=== PATIENT | female | born 1960 | race African-American/Black ===

== ENCOUNTER 2017-01-07 11:48 | Inpatient (IN) | payer OTHER ==
[~2017-01-07] VITALS: Ht 154.9 cm; Wt 70.3 kg
--- NOTE | ~2017-01-07 | EKG ---
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 : 1960 Requested By: Kenya Marques Order Number: [id number] MD: Tyler Velazquez Measurements Intervals [place] Rate: 51 P: 15 SC: 148 QRS: 26 QRSD: 89 T: 42 QT: 484 QTc: 446 Interpretive Statements Sinus rhythm Probable left atrial enlargement Probable left ventricular hypertrophy Compared to ECG 03/26/2014 09:38:18 T-wave abnormality no longer present Prolonged QT interval no longer present Electronically Signed On 01-07-2017 15:59:17 CDT by Tyler Velazquez [email or web address] <ELECTRONICALLY SIGNED> By: Tyler Velazquez MD 01/07/17 1559 1204 1204 Tyler Velazquez MD /EPI
--- NOTE | ~2017-01-07 | D ---
[facility] [place] [address] DISCHARGE SUMMARY Name: CESAR FLANNERY Room #: 453-P ADM IN M.R.#: [id number] Admission: 01/07/17 Attend Phys: Roxie Wynn MD Discharge: Date of : 56 Report #: [id number] THIS REPORT FOR: //name// CC: Yvrose Wynn DATE OF SERVICE: 01/08/2017 HISTORY OF PRESENT ILLNESS: The patient is a 57-year-old female with history of hypertension and noncompliance, who was admitted for hypertensive urgency. She was sent here from primary care doctor's office. Her blood pressure was 220/114. Please refer to the admission H and P for details. HOSPITALIZATION COURSE: The patient was hospitalized at [facility]. There was no evidence of end organ damage. The patient had headache, so CT scan of the brain was taken, which was negative. The patient does have history of hemorrhagic stroke in the past. After the patient's medications were resumed, blood pressure normalized. Cardene drip was discontinued a few hours after admission. The patient's condition remained stable. Her headache, resolved. She is currently completely asymptomatic and she feels well. The patient's condition is acceptable, as documented in the patient's chart. She will be discharged home with close outpatient followup. DISCHARGE DIAGNOSES: 1. Hypertensive urgency, resolved. 2. Noncompliance with medications. 3. Hypertension. 4. Tobacco abuse. 5. History of hemorrhagic stroke with mild left-sided weakness. 6. Depression. 7. Coronary artery disease, status post angioplasty in 2003, no stent. 8. Depression. DISCHARGE MEDICATIONS: Please refer to the medication reconciliation list. FOLLOWUP PLAN: Follow up with the primary care physician in 1-2 weeks. By: 1153 1224 Roxie Wynn MD /nt
[~2017-01-07 11:48] MED LIST: CARVEDILOL12.5 MG PO; IMDUR 30 MG TAB30 M1 PO; LISINOPRIL10 MG PO; NITROGLYCERIN0.4 MG SUBLING; NOHOMEMEDICATIONS; PRAVACHOL40 MG PO
[2017-01-07 11:49] VITALS: BP 230/130
[2017-01-07] MEDS ORDERED: SERTRALINE HCL100 MG PO (12:08)
[2017-01-07] MEDS ORDERED: LISINOPRIL20 MG PO (12:08)
[2017-01-07] MEDS ORDERED: ZOLOFT50 MG PO (12:08)
[2017-01-07 12:18] LABS: ABSOLUTE NEUTROPHILS 3.2 thou/uL (1.4-8.2); BASOPHILS 1.3 % (0.0-2.0); EOSINOPHILS 5.4 % (0.0-3.0); HEMATOCRIT 40.2 % (37.0-47.0); HEMOGLOBIN 12.9 gm/dL (12.0-15.0); LYMPHOCYTES 29.8 % (24.0-44.0); MCH 25.6 pg (26.0-34.0); MCHC 32.2 g/dL (28.0-37.0); MCV 79.4 fL (80.0-100.0); MONOCYTES 7.2 % (1.0-8.0); PLATELET COUNT 266 thou/uL (150-400); POLYS 56.3 % (36.0-66.0); RBC 5.06 mil/uL (4.20-5.00); RDW 14.8 % (10.5-14.5); WBC 5.7 thou/uL (4.0-11.0)
[2017-01-07 12:25] LABS: MANUAL DIFF NO
[2017-01-07 12:36] LABS: ANION GAP 8 mmol/L (7-16); BUN 10 mg/dL (7-18); CALCIUM 9.2 mg/dL (8.5-10.1); CHLORIDE 109 mmol/L (98-107); CO2 28 mmol/L (21-32); CREATININE 1.1 mg/dL (0.6-1.0); GLUCOSE 88 mg/dL (74-106); POTASSIUM 3.4 mmol/L (3.5-5.1); SODIUM 145 mmol/L (136-145)
[2017-01-07 12:41] LABS: TROPONIN-I < 0.04 ng/mL (<0.04-0.07)
[2017-01-07 15:02] VITALS: BP 139/76
[2017-01-07 16:45] VITALS: BP 163/90
[2017-01-07 19:26] VITALS: BP 149/103
[2017-01-07 20:55] VITALS: BP 132/84
[2017-01-07 23:40] VITALS: BP 129/81
[2017-01-08 03:58] VITALS: BP 146/97
[2017-01-08 05:58] LABS: HEMATOCRIT 41.6 % (37.0-47.0); HEMOGLOBIN 13.5 gm/dL (12.0-15.0); MCH 25.6 pg (26.0-34.0); MCHC 32.4 g/dL (28.0-37.0); MCV 79.1 fL (80.0-100.0); RBC 5.26 mil/uL (4.20-5.00); WBC 7.5 thou/uL (4.0-11.0)
[2017-01-08 06:13] LABS: ALBUMIN 3.3 g/dL (3.4-5.0); CALCIUM 9.3 mg/dL (8.5-10.1); POTASSIUM 3.4 mmol/L (3.5-5.1); TOTAL BILIRUBIN 0.3 mg/dL (<0.1-1.0)
[2017-01-08 07:53] VITALS: BP 170/99
[2017-01-08 10:06] VITALS: BP 134/92
[2017-01-08 11:31] VITALS: BP 125/79
[2017-01-08 13:08] VITALS: BP 125/79
== END 2017-01-08 13:50 | disposition home or self-care (01) | DRG 305 ==
LOC: ER 11:48 → 4W 13:44 → EROBS 13:44 → 4W 15:03
PROVIDERS: Emergency Medicine; Nurse Practitioner
DX: I16.1 Hypertensive emergency (principal); I69.954 Hemiplegia and hemiparesis following unspecified cerebrovascular disease affecting left non-dominant side; I10 Essential (primary) hypertension; E78.5 Hyperlipidemia, unspecified; E87.6 Hypokalemia; I16.0 Hypertensive urgency; N19 Unspecified kidney failure; F32.9 Major depressive disorder, single episode, unspecified; I25.10 Atherosclerotic heart disease of native coronary artery without angina pectoris; F17.210 Nicotine dependence, cigarettes, uncomplicated; Z98.62 Peripheral vascular angioplasty status; Z91.14 Patient's other noncompliance with medication regimen; I25.2 Old myocardial infarction; Z79.899 Other long term (current) drug therapy; Z82.49 Family history of ischemic heart disease and other diseases of the circulatory system; Z83.2 Family history of diseases of the blood and blood-forming organs and certain disorders involving the immune mechanism; Z83.3 Family history of diabetes mellitus; Z82.3 Family history of stroke
CPT/HCPCS: 10045

== ENCOUNTER 2018-01-24 07:54 | Observation (INO) | payer OTHER ==
[~2018-01-24] VITALS: Ht 154.9 cm; Wt 69.9 kg
--- NOTE | ~2018-01-24 | D ---
[facility] [place] [address] DISCHARGE SUMMARY Name: PRUDENCIOCESAR CRAMER Room #: 212-P [facility] Leoncio Garcia#: [id number] Admission: 01/24/18 Attend Phys: Karlos Harris MD Discharge: 01/25/18 Date of : 56 Report #: [id number] THIS REPORT FOR: //name// CC: Karlos Lara DATE OF SERVICE: 01/25/2018 FINAL DIAGNOSES: 1. Coronary artery disease, status post angioplasty. 2. Prior history of CAD with PCI. 3. Cerebrovascular accident with left leg weakness. 4. Hypertension. 5. Hypercholesterolemia. 6. Chronic tobacco use. HOSPITAL COURSE: Please see the original H and P for full details. The patient presented with unstable angina. Please see the cardiac cath report for full details. She was found to have a severe occlusion in the second obtuse marginal artery, undergoing placement of a drug-eluting stent. The previously placed stents in the RCA were patent with [id number] restenosis. During the angioplasty procedure, she had evidence for coronary vasospasm in the LAD, reverse with intracoronary nitroglycerin. She has remained stable overnight, denies any chest pains. Incidentally, an ECG performed this morning while she was sleeping revealed ST elevation in the precordial leads. Clinically, she was asymptomatic. She was given a nitroglycerin and a repeat EKG revealed resolution of the ST changes. In summary, the patient has evidence for coronary vasospasm. The Coreg was discontinued and she was started on Norvasc. She will continue with Imdur. I discussed with her the importance of complete smoking cessation, as this may be a trigger for the spasm. In addition, I discussed with her at length regarding the importance of compliance with medications, especially dual antiplatelet therapy. She will continue with aspirin, Pravachol and Imdur 90 mg daily. She will also continue with Maxzide once a day. New prescriptions include Norvasc 10 mg daily and Plavix 75 mg daily. <ELECTRONICALLY SIGNED> By: Karlos Harris MD 01/26/18 0819 0856 1154 Karlos Harris MD /nt
--- NOTE | ~2018-01-24 | CATHLAB ---
[facility] [address] [place] [address] INVASIVE PROCEDURE REPORT Name: CESAR FLANNERY Room #: 212-P [facility] IN ..#: [id number] Admission: 01/24/18 Attend Phys: Karlos Harris MD Discharge: Date of : 56 Date of Service: 01/24/18 1504 Report #: [id number] THIS REPORT FOR: //name// APPROVED REPORT Study performed: 01/24/2018 09:40:23 Patient Details Patient Status: Out-Patient Room #: The patient is a 58 year-old female Event Personnel Karlos Harris Car Oiler, Katarzyna RodriguezR, HOT DIP TINNING SUPERVISOR Monitor, Elda Alcala Knisely, Ceola RN RN, Hanh Damon RN squadron worker Performed Art Access - R femoral artery* Left Heart Cath w/or w/o Coronaries [id number] [facility] Place w/wo Plasty Single [place] [id number] Hemostasis w/ Mynx Indication Dyspnea, Unstable angina , Chest pain Risk Factors Hypercholesterolemia, Coronary Artery DiseaseHypertension Previous Procedures/Diagnoses Previous PCI, Previous CO Procedure Narrative The patient was brought electively to the Cardiac Catheterization Laboratory and was prepped and draped in a sterile manner. The Right Groin^ was infiltrated with 1% Lidocaine subcutaneous anesthesia. A PINNACLE 4FR Sheath #[id number] sheath was inserted into the RFA^. Coronary angiography was performed using coronary diagnostic catheters. The right coronary system was accessed and visualized with a JR 4 catheter. The left coronary system was accessed and visualized with a JL 4 catheter. The left ventricle was accessed and visualized with a JR 4 catheter. Left ventricular/Aortic Valve gradient assessed via catheter pullback. Pre-demployment femoral angiogram was performed . Closure device was deployed with a 6 Fr Mynx. The patient tolerated the procedure well and there were no complications associated with the procedure. There was no hematoma. [facility] [address] [place] [address] INVASIVE PROCEDURE REPORT Name: PRUDENCIOCESARTEMO CRAMER Room #: 212-P [facility] IN ..#: [id number] Admission: 01/24/18 Attend Phys: Karlos Harris MD Discharge: Date of : 56 Date of Service: 01/24/18 1504 Report #: [id number] Fluoro Time: 8.37 minutes Dose: DAP 7046.80 cGycm2 1032 mGy Contrast Type and Amount: Visipaque 150 ml Coronary Angiography The patient's coronary anatomy is co- dominant. Diagnostic Cath Left Main Patent vessel, with no flow-limiting lesions. LAD There is a mild to moderate discrete stenosis in the proximal segment, 30-40%. Diagonal 1 Patent vessel, mild disease proximally. Circumflex Codominant vessel with mild disease in the proximal segment, 20%. OM1 Patent vessel, with no flow-limiting lesions. OM2 Moderate size caliber vessel, severe lesion in the proximal segment, 75%. Right Coronary There is a stent in the distal segment, patent with mild to moderate restenosis, 40%. R PDA Small-caliber vessel, moderate lesion proximally, 50%. Left Ventriculography Left Ventriculography was not performed. An LVEDP was measured and there is no gradient across the outflow tract. Hemodynamics The aortic pressure is 180/99 mmHg with a mean of 130 mmHg. The left ventricular pressure is 189/17 mmHg with a mean of mmHg. The left ventricular end diastolic pressure is 27 mmHg. PCI Technique Lesion Anticoagulation was achieved with Angiomax. Patient was preloaded with Plavix. Percutaneous coronary intervention was performed on the second obtuse marginal branch segment. The lesion stenosis prior to intervention was 75% with ADAM 3 flow. A Spill IncTA 6FR XB 3.5 #[id number] Guide Catheter was used to engage the ostium. A Luge Wire .014 x 182CM #[id number] Interventional Guidewire was used to cross the lesion. BALLOON DILATION A Balloon catheter Euphora RX 2.5 x 12 #[id number] was inserted and inflated up to 6.00atm for 11seconds. Additional Inflation: 6.00atm for 13seconds. STENT DEPLOYMENT [address] [address] INVASIVE PROCEDURE REPORT Name: PETRASILVIANOCESARTEMO CRAMER Room #: 212-P [facility] IN .R.#: [id number] Admission: 01/24/18 Attend Phys: Karlos Harris MD Discharge: Date of : 56 Date of Service: 01/24/18 1504 Report #: [id number] A drug-eluting stent RESOLUTE RX 2.75 X 18 #[id number] was inserted and inflated up to 8.00atm for 26seconds. POST STENT DEPLOYMENT BALLOON DILATION A Balloon catheter TREK NC RX 2.75 X 12 #[id number] was inserted and inflated up to 18.00atm for 20seconds. Final angiography reveals 0 % stenosis with ADAM 3 flow. COMMENTS On 2 occasions, the patient had coronary vasospasm, both in the OM and LAD vessels. Resolved with IC nitroglycerin. Conclusion 1. Successful insertion of a drug-eluting stent into the second OM vessel. 2. Mild to moderate disease in the LAD and RCA. 3. Patent RCA stent with nonobstructive restenosis. 4. Evidence for coronary vasospasm, recommend nitrates and calcium channel blockers. 5. Recommend dual antiplatelet therapy. <ELECTRONICALLY SIGNED> By: Karlos Harris MD 01/24/18 1504 1504 1504 Karlos Harris MD /INF
--- NOTE | ~2018-01-24 | EKG ---
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1960 Requested By: Karlos Harris Order Number: [id number] MD: Tyler Velazquez Measurements Intervals [place] Rate: 57 P: 13 HI: 144 QRS: 41 QRSD: 83 T: 43 QT: 442 QTc: 431 Interpretive Statements Sinus rhythm Left ventricular hypertrophy ST elevation, markedly improved compared to earlier EKG Compared to ECG 01/25/2018 06:15:16 No significant changes Electronically Signed On 01-25-2018 16:33:54 CDT by Tyler Velazquez [email or web address] <ELECTRONICALLY SIGNED> By: Tyler Velazquze MD 01/25/18 1633 0839 0839 Tyler Velazquez MD /EPI
--- NOTE | ~2018-01-24 | EKG ---
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1960 Requested By: Karlos Harris Order Number: [id number] MD: Jaren Wren Measurements Intervals [place] Rate: 62 P: 38 ID: 136 QRS: 49 QRSD: 100 T: 60 QT: 437 QTc: 444 Interpretive Statements Sinus rhythm Left ventricular hypertrophy Anterior infarct, acute (LAD) ST elevation, consider inferior injury Lateral leads are also involved Compared to ECG 01/24/2018 12:14:27 Myocardial infarct finding now present ST (T wave) deviation now present Electronically Signed On 01-25-2018 7:50:58 CDT by Jaren Wren [email or web address] <ELECTRONICALLY SIGNED> By: Jaren Wren MD, [facility] 01/25/18 0750 4 Jaren Wren MD, [facility] /EPI
--- NOTE | ~2018-01-24 | EKG ---
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1960 Requested By: Karlos Harris Order Number: [id number] MD: Tyler Velazquez Measurements Intervals [place] Rate: 60 P: 36 WV: 147 QRS: 36 QRSD: 91 T: 53 QT: 448 QTc: 448 Interpretive Statements Sinus rhythm Consider left ventricular hypertrophy Anterior ST elevation, probably due to LVH Compared to ECG 01/07/2017 12:04:22 ST (T wave) deviation now present Electronically Signed On 01-24-2018 12:36:41 CDT by Tyler Velazquez [email or web address] <ELECTRONICALLY SIGNED> By: Tyler Velazquez MD 01/24/18 1236 0843 0843 Tyler Velazquez MD /EPI
--- NOTE | ~2018-01-24 | EKG ---
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
[~2018-01-24 07:54] MED LIST changes: +LISINOPRIL20 MG PO; +SERTRALINE HCL100 MG PO; +ZOLOFT50 MG PO
[2018-01-24 08:31] VITALS: BP 144/86
[2018-01-24] MEDS ORDERED: ZOLOFT50 MG PO (08:50)
[2018-01-24] MEDS ORDERED: ASPIR 8181 M1 PO (08:51)
[2018-01-24] MEDS ORDERED: MAXZIDE-25 MG1 EACH PO (08:52)
[2018-01-24 08:58] LABS: HEMATOCRIT 40.7 % (37.0-47.0); HEMOGLOBIN 13.2 gm/dL (12.0-15.0); MCH 25.1 pg (26.0-34.0); MCHC 32.4 g/dL (28.0-37.0); MCV 77.4 fL (80.0-100.0); RBC 5.26 mil/uL (4.20-5.00); RDW 14.8 % (10.5-14.5); WBC 13.6 thou/uL (4.0-11.0)
[2018-01-24 09:05] LABS: CALCIUM 10.2 mg/dL (8.5-10.1); CREATININE 1.4 mg/dL (0.6-1.0); POTASSIUM 4.3 mmol/L (3.5-5.1)
[2018-01-24 11:43] VITALS: BP 163/100
[2018-01-24 15:47] VITALS: BP 145/73
[2018-01-24 19:57] VITALS: BP 137/75
[2018-01-24 23:55] VITALS: BP 133/88
[2018-01-25 04:12] LABS: HEMATOCRIT 37.5 % (37.0-47.0); HEMOGLOBIN 12.2 gm/dL (12.0-15.0); MCH 25.2 pg (26.0-34.0); MCHC 32.6 g/dL (28.0-37.0); MCV 77.4 fL (80.0-100.0); RBC 4.85 mil/uL (4.20-5.00); RDW 14.7 % (10.5-14.5); WBC 15.6 thou/uL (4.0-11.0)
[2018-01-25 04:27] LABS: ALBUMIN 3.2 g/dL (3.4-5.0); ANION GAP 9 mmol/L (7-16); BUN 33 mg/dL (7-18); CALCIUM 9.2 mg/dL (8.5-10.1); CHLORIDE 111 mmol/L (98-107); CO2 24 mmol/L (21-32); CREATININE 1.4 mg/dL (0.6-1.0); GLUCOSE 94 mg/dL (74-106); POTASSIUM 4.1 mmol/L (3.5-5.1); SGOT 19 U/L (15-37); SGPT 16 U/L (30-65); SODIUM 144 mmol/L (136-145); TOTAL BILIRUBIN 0.2 mg/dL (<0.1-1.0); TOTAL PROTEIN 6.8 g/dL (6.4-8.2); TROPONIN-I < 0.04 ng/mL (<0.06)
[2018-01-25 05:30] VITALS: BP 157/88
[2018-01-25] MEDS ORDERED: CLOPIDOGREL75 MG PO (08:47)
[2018-01-25] MEDS ORDERED: AMLODIPINE BESY10 MG PO (08:48)
[2018-01-25 08:50] VITALS: BP 133/88
[2018-01-25 12:11] VITALS: BP 126/83
[2018-01-25 12:28] VITALS: BP 126/83
== END 2018-01-25 12:56 | disposition home or self-care (01) ==
LOC: CATH 07:54 → 2N 10:37 → ENTRNSPT 01-25 12:42 → EDTRNSPTSTS 01-25 12:45 → 2N 01-25 12:56
PROVIDERS: Internal Medicine Cardiovascular Disease
DX: I25.10 Atherosclerotic heart disease of native coronary artery without angina pectoris (principal); I63.9 Cerebral infarction, unspecified; I10 Essential (primary) hypertension; E78.00 Pure hypercholesterolemia, unspecified; Z72.0 Tobacco use

== ENCOUNTER → 2018-11-07 | Outpatient (CLI) | payer OTHER ==
[~2018-11-07] MED LIST changes: +AMLODIPINE BESY10 MG PO; +ASPIR 8181 M1 PO; +CARDIZEM CD180 MG PO; +CEFUROXIME500 MG PO; +CLOPIDOGREL75 MG PO; +COREG25 MG PO; +MAXZIDE-25 MG1 EACH PO; +PACERONE 200 M200 M1 PO; +PROTONIX 20 MG20 MG PO
--- NOTE | 2018-11-07 15:30 | 2DMMODE ---
[facility] [place] [address] 2 D/M-MODE ECHOCARDIOGRAM Name: PRUDENCIOCESARTEMO CRAMER Room #: [facility]#: [id number] ������������� Admission: 11/07/18 ������������� Attend Phys: Karlos Harris MD Discharge: ��� ������������� ��� Date of : 56 Date of Service: 11/07/18 1530 �� Report #: [id number] �������� ��������������������������������������������[id number] THIS REPORT FOR: //name// APPROVED REPORT Study performed: 11/07/2018 14:45:05 EXAM: Comprehensive 2D, Doppler, and color-flow Echocardiogram Patient Location: Out-Patient Status: routine BSA: 1.85 HR: 69 bpm Rhythm: NSR Other Information Study Quality: Good Indications HTN. Hx: CAD, stent, pacemaker. 2D Dimensions RVDd: 32.89 mm IVSd: 12.67 (7-11mm) LVOT Diam: 18.51 (18-24mm) LVDd: 45.90 mm PWd: 11.74 (7-11mm) LVDs: 30.75 (25-40mm) Aortic Root: 31.16 mm Volumes Left Atrial Volume (Systole) Single Plane 4CH: 48.23 mL Single Plane 2CH: 69.97 mL LA ESV Index: 34.00 mL/m2 Aortic Valve AoV Peak Adi.: 1.76 m/s AO Peak Gr.: 12.44 mmHg LVOT Max P.46 mmHg LVOT Max V: 0.93 m/s INGA Vmax: 1.42 cm2 Mitral Valve E/A Ratio: 0.9 MV Decel. Time: 176.83 ms MV E Max Adi.: 0.80 m/s [facility] [address] [address] 2 D/M-MODE ECHOCARDIOGRAM Name: CESAR FLANNERY Room #: [facility]#: [id number] ������������� Admission: 11/07/18 ������������� Attend Phys: Karlos Harris MD Discharge: ��� ������������� ��� Date of : 56 Date of Service: 11/07/18 1530 �� Report #: [id number] �������� ��������������������������������������������[id number] MV A Adi.: 0.91 m/s MV PHT: 51.28 ms IVRT: 106.11 ms Pulmonary Valve PV Peak Adi.: 1.10 m/s PV Peak Gr.: 4.84 mmHg Pulmonary Vein P Vein S: 0.72 m/s P Vein D: 0.42 m/s P Vein S/D Ratio: 1.71 Tricuspid Valve TR Peak Adi.: 3.09 m/s RAP Estimate: 5.00 mmHg TR Peak Gr.: 38.20 mmHg PA Pressure: 43.00 mmHg Left Ventricle The left ventricle is normal size. Mild concentric left ventricular hypertrophy. Left ventricular systolic function is normal. LVEF is 55-60%. Grade I - abnormal relaxation pattern. Right Ventricle The right ventricle is normal size. The right ventricular systolic function is normal. Pacemaker lead is present in the right ventricle. Atria Left atrium is mildly dilated. The right atrium size is normal. Aortic Valve The aortic valve is normal in structure. No aortic regurgitation is present. There is no aortic valvular stenosis. Mitral Valve The mitral valve is normal in structure. Mild mitral regurgitation. Tricuspid Valve The tricuspid valve is normal in structure. Mild tricuspid regurgitation. Estimated PAP is 40-45mmHg. Pulmonic Valve Pulmonic valve is not well visualized. Trace pulmonic regurgitation. [facility] [place] [address] 2 D/M-MODE ECHOCARDIOGRAM Name: CESAR FLANNERY Room #: [facility]#: [id number] ������������� Admission: 11/07/18 ������������� Attend Phys: Karlos Harris MD Discharge: ��� ������������� ��� Date of : 56 Date of Service: 11/07/18 1530 �� Report #: [id number] �������� ��������������������������������������������[id number] Great Vessels The aortic root is normal in size. Ascending aorta is not well visualized. IVC is normal in size and collapses >50% with inspiration. Pericardium There is no pericardial effusion. <Conclusion> The left ventricle is normal size. Mild concentric left ventricular hypertrophy. Left ventricular systolic function is normal. Grade I - abnormal relaxation pattern. The right ventricle is normal size. Pacemaker lead is present in the right ventricle. Left atrium is mildly dilated. The aortic valve is normal in structure. Mild mitral regurgitation. Mild tricuspid regurgitation. Estimated PAP is 40-45mmHg. ��������������������������������������������� <ELECTRONICALLY SIGNED> ���������������������������������������� By: Karlos Harris MD ��������������������������������������������� 11/07/18 1530 153 29 Karlos Harris MD /INF
== END ==
LOC: CV 14:28
DX: I08.1 Rheumatic disorders of both mitral and tricuspid valves (principal); I10 Essential (primary) hypertension; Z95.5 Presence of coronary angioplasty implant and graft; Z95.0 Presence of cardiac pacemaker

== ENCOUNTER → 2020-05-16 | Outpatient (CLI) | payer OTHER | LOC: SJCVC 14:29 | PROVIDERS: ATTEND Internal Medicine Cardiovascular Disease | DX: R94.31 Abnormal electrocardiogram [ECG] [EKG] (principal); I47.2 Ventricular tachycardia; I25.10 Atherosclerotic heart disease of native coronary artery without angina pectoris; I10 Essential (primary) hypertension; Z79.82 Long term (current) use of aspirin; Z79.899 Other long term (current) drug therapy; Z82.49 Family history of ischemic heart disease and other diseases of the circulatory system; Z87.891 Personal history of nicotine dependence; Z95.810 Presence of automatic (implantable) cardiac defibrillator ==

== ENCOUNTER → 2020-07-29 | Outpatient (CLI) | payer OTHER | LOC: LAB 12:29 | PROVIDERS: ATTEND Nurse Practitioner | DX: Z20.828 Contact with and (suspected) exposure to other viral communicable diseases (principal) ==

== ENCOUNTER → 2020-11-20 | Outpatient (CLI) | payer OTHER | LOC: SJCVCIMAG 11-14 07:38 | PROVIDERS: ATTEND Internal Medicine Cardiovascular Disease | DX: I07.1 Rheumatic tricuspid insufficiency (principal); R94.31 Abnormal electrocardiogram [ECG] [EKG]; I25.118 Atherosclerotic heart disease of native coronary artery with other forms of angina pectoris; I10 Essential (primary) hypertension; E78.00 Pure hypercholesterolemia, unspecified; I25.2 Old myocardial infarction; Z95.5 Presence of coronary angioplasty implant and graft; Z98.890 Other specified postprocedural states; Z95.0 Presence of cardiac pacemaker; Z72.0 Tobacco use; Z79.82 Long term (current) use of aspirin; Z79.899 Other long term (current) drug therapy; Z86.73 Personal history of transient ischemic attack (TIA), and cerebral infarction without residual deficits; Z82.49 Family history of ischemic heart disease and other diseases of the circulatory system ==

== ENCOUNTER 2021-03-10 16:41 | Emergency (ER) | payer OTHER ==
[~2021-03-10] VITALS: Ht 154.9 cm; Wt 72.6 kg
[2021-03-10 19:33] LABS: ABSOLUTE NEUTROPHILS 5.2 thou/uL (1.4-8.2); BASOPHILS 0.6 % (0.0-2.0); HEMATOCRIT 35.5 % (37.0-47.0); HEMOGLOBIN 11.6 gm/dL (12.0-15.0); LYMPHOCYTES 27.1 % (24.0-44.0); MCH 26.4 pg (26.0-34.0); MCHC 32.7 g/dL (28.0-37.0); MCV 80.8 fL (80.0-100.0); MONOCYTES 8.3 % (1.0-8.0); PLATELET COUNT 300 thou/uL (150-400); RDW 15.1 % (10.5-14.5); WBC 8.6 thou/uL (4.0-11.0)
[2021-03-10 19:43] VITALS: BP 100/66
[2021-03-10 19:50] LABS: CALCIUM 9.6 mg/dL (8.5-10.1); POTASSIUM 3.3 mmol/L (3.5-5.1)
[2021-03-10 20:05] LABS: ALBUMIN 3.2 g/dL (3.4-5.0); TOTAL BILIRUBIN 0.5 mg/dL (0.2-1.0); TOTAL PROTEIN 7.9 g/dL (6.4-8.2); URIC ACID* 10.5 mg/dL (2.6-6.0)
[2021-03-10] MEDS ORDERED: NORCO5 PO (20:25)
[2021-03-10] MEDS ORDERED: PREDNISONE 10 M10 M1 PO (20:25)
== END 2021-03-10 16:54 | disposition home or self-care (01) ==
LOC: ER 16:41
PROVIDERS: Physician Assistant
DX: M10.9 Gout, unspecified (principal); I10 Essential (primary) hypertension; E78.5 Hyperlipidemia, unspecified; F32.9 Major depressive disorder, single episode, unspecified; F17.210 Nicotine dependence, cigarettes, uncomplicated; Z79.82 Long term (current) use of aspirin

== ENCOUNTER 2021-04-04 10:20 | Inpatient (IN) | payer OTHER ==
[~2021-04-04] VITALS: Ht 154.9 cm; Wt 72.6 kg
[~2021-04-04 10:20] MED LIST changes: +NORCO5 PO; +PREDNISONE 10 M10 M1 PO
[2021-04-04 10:22] VITALS: BP 144/93
[2021-04-04 10:57] LABS: ABSOLUTE NEUTROPHILS 3.8 thou/uL (1.4-8.2); BASOPHILS 0.9 % (0.0-2.0); EOSINOPHILS 4.2 % (0.0-3.0); HEMATOCRIT 33.2 % (37.0-47.0); LYMPHOCYTES 31.1 % (24.0-44.0); MCH 26.7 pg (26.0-34.0); MCHC 33.1 g/dL (28.0-37.0); MCV 80.6 fL (80.0-100.0); MONOCYTES 9.3 % (1.0-8.0); PLATELET COUNT 252 thou/uL (150-400); POLYS 54.5 % (36.0-66.0); RBC 4.12 mil/uL (4.20-5.00); WBC 6.9 thou/uL (4.0-11.0)
[2021-04-04 11:02] LABS: ANION GAP 8 mmol/L (7-16); BUN 30 mg/dL (7-18); CALCIUM 9.6 mg/dL (8.5-10.1); CHLORIDE 108 mmol/L (98-107); CO2 30 mmol/L (21-32); CREATININE 2.1 mg/dL (0.6-1.0); GLUCOSE 94 mg/dL (74-106); POTASSIUM 3.3 mmol/L (3.5-5.1); SODIUM 146 mmol/L (136-145)
[2021-04-04 11:13] LABS: ALBUMIN 2.9 g/dL (3.4-5.0); SGOT 15 U/L (15-37); SGPT 14 U/L (14-59); TOTAL BILIRUBIN 0.3 mg/dL (0.2-1.0); TOTAL PROTEIN 7.2 g/dL (6.4-8.2); TROPONIN-I <0.06 ng/mL (<0.06)
--- NOTE | 2021-04-04 12:04 | NUR ---
STRAIGHT CATHETER FOR UA, PT TOLERATED PROCEDURE WELL. STERILE TECHNIQUE MAINTAINED
[2021-04-04 12:18] LABS: URINE BILIRUBIN NEGATIVE (Negative); URINE BLOOD NEGATIVE (Negative); URINE CLARITY CLEAR; URINE COLOR YELLOW; URINE GLUCOSE-RANDOM* NEGATIVE (Negative); URINE KETONES NEGATIVE (Negative); URINE LEUKOCYTES-REFLEX NEGATIVE (Negative); URINE PROTEIN (DIPSTICK) NEGATIVE (Negative); URINE UROBILINOGEN 0.2 E.U./dl (0.2-1.0)
[2021-04-04 12:19] LABS: URINE NITRITE-REFLEX POSITIVE (Negative)
[2021-04-04 12:46] LABS: SQUAMOUS 0-3 Few /LPF (0-3)
[2021-04-04 12:47] LABS: BACTERIA-REFLEX >30 Many /HPF (None Seen); CASTS None Seen /LPF (None Seen); CRYSTALS None Seen /LPF (None Seen); URINE RBC None Seen /HPF (NONE SEEN); URINE WBC-REFLEX 0-5 Rare /HPF (0-5)
--- NOTE | 2021-04-04 13:49 | EKG ---
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
[2021-04-04 14:00] LABS: APTT 31.8 Seconds (24.5-32.8); PROTIME 10.9 Seconds (10.5-12.1)
[2021-04-04 15:25] LABS: CHOLESTEROL 114 mg/dL (<200); HDL CHOLESTEROL 36 mg/dL (>40); LDL CHOLESTEROL 59 mg/dL (<100); TC:HDL 3.2 Ratio (Not establshd); TRIGLYCERIDE 98 mg/dL (<150); VLDL 20 mg/dL (<40)
--- NOTE | 2021-04-04 17:48 | NUR ---
61 year old female with hx of Stroke presents to the ED with family noting increased confusion and weakness. Family reports patient vaccinated with J&J in October. Neuro has been consulted and review of lab including urinalysis pending as workup continues. Daughter Bogdan Lopez listed as next of kin at [phone]. As plan of care and assessments by MD team are completed CM will follow for all discharge needs.
[2021-04-04 18:20] VITALS: BP 142/88
[2021-04-04 19:16] VITALS: BP 137/90
[2021-04-04 20:56] VITALS: BP 150/91
--- NOTE | 2021-04-05 04:32 | NUR ---
patient aox4 makes needs known. patient left side weakness/numbness d/t old cva. patient calm and cooperative with meds and care. patient uses bedside commode. patient needs minimum assistance with adl, bed mobility, transfer and toileting. fall precaution in place. patient in bed asleep at this time breathing regular and unlaboured.
[2021-04-05 08:15] VITALS: BP 113/66
--- NOTE | 2021-04-05 08:46 | HC ---
[facility] [place] [address] CONSULTATION Name: CESAR FLANNERY Room #: 453-P ADM IN M.R.#: [id number] Admission: 04/04/21 Attend Phys: Ulises Garcia MD Discharge: Date of : 56 Report #: [id number] THIS REPORT FOR: cc: Yvrose Lara DNP, Mary E. DNP [place], Roxane S. DO ~ NEUROLOGY CONSULTATION HISTORY OF PRESENT ILLNESS: The patient is a 61-year-old female. A family member is in the room. He states that when she awoke this morning, she seemed confused. She seemed to have more left-sided numbness and her speech was slurred. He also stated that she just did not seem right. She was brought to the emergency room and evaluated. She has had a CT scan of the head, which is consistent with small old lacunar central white matter infarct. I asked the patient how she is feeling now. She states she feels like she is back to herself and she wants to go home. She does not want to be admitted. She is hungry and she would like something to eat. The gentleman who was also with her wanted us to know that the patient never drinks water. The patient stated that she does have a history of stroke. She was unable to tell me how long ago that was, but with the stroke that she had it involved her left arm and leg. PAST MEDICAL HISTORY: Hypertension, stroke, myocardial infarction. PAST SURGICAL HISTORY: Removal of fatty tissue on the back and anterior neck. SOCIAL HISTORY: The patient smokes one and a half packs of cigarettes a day. She does not drink alcohol or use recreational drugs. MEDICATIONS AT HOME: Aspirin 81 mg daily, sertraline 200 mg daily, pravastatin 40 mg daily, amiodarone 400 mg daily, diltiazem 180 mg at bedtime. ALLERGIES: CONTRAST DYE. VITAL SIGNS: Temperature 37.2, pulse rate 70, respiratory rate 16, blood pressure 143/86. Bedside pulse oximetry 93%. LABORATORY DATA: Hematology: White blood cell count 6.9, hemoglobin 11, hematocrit 33.2, MCV 80.6, platelet count 252,000. INR 1. Urinalysis: Nitrite positive, many bacteria. Chemistry: Sodium 146, potassium 3.3, chloride 108, carbon dioxide 30, BUN 30, creatinine 2.1, GFR 29, glucose 94, calcium 9.6, total bilirubin 0.3, AST 15, ALT 14, alkaline phosphatase 38, albumin 3.9. Serum alcohol level negative. [address] [address] CONSULTATION Name: CESAR FLANNERY Room #: [address] [place] [address] [place] ..#: [id number] Admission: 04/04/21 Attend Phys: Ulises Garcia MD Discharge: Date of : 56 Report #: [id number] IMAGING: CT scan of the head demonstrates no acute abnormalities. Small old lacunar central white matter infarcts are seen. Chest x-ray: No acute abnormalities. NEUROLOGIC EXAMINATION: Cranial nerves 2 through 12 are grossly intact. Motor exam demonstrates symmetrical strength in all 4 extremities with symmetrical fine finger movements. The patient is able to raise both arms above her head and each leg off the bed independently. Reflexes are 2/4 in the upper extremities with absent ankle reflexes. Plantar responses are flexor bilaterally. There is no evidence of dysmetria with [id number]. IMPRESSION: It is difficult to tell what happened to the patient this morning. She seemed to have an increase in her right-sided weakness. The patient does have a somewhat abnormal urinalysis and perhaps this is the beginning of a urinary tract infection, which can make old stroke seem more obvious. I am going to order a carotid ultrasound and echocardiogram and if it has not been ordered a lipid profile as well. I do not necessarily think that this is a cerebrovascular event, but as she is here and we certainly want to evaluate her stroke risk factors, I am going to order these other diagnostic studies as mentioned. I thank you for your kind referral of the patient and we will continue to follow her with you. <ELECTRONICALLY SIGNED> By: Ofelia Melo DO 04/05/21 [id number] Ofelia Melo DO /nt
[2021-04-05 10:36] LABS: HEMATOCRIT 33.7 % (37.0-47.0); HEMOGLOBIN 11.1 gm/dL (12.0-15.0); MCH 26.7 pg (26.0-34.0); MCHC 33.1 g/dL (28.0-37.0); MCV 80.8 fL (80.0-100.0); RBC 4.17 mil/uL (4.20-5.00)
[2021-04-05 10:56] LABS: CALCIUM 8.9 mg/dL (8.5-10.1); CREATININE 1.9 mg/dL (0.6-1.0); MAGNESIUM 1.7 mg/dL (1.8-2.4); POTASSIUM 3.4 mmol/L (3.5-5.1)
[2021-04-05 16:05] VITALS: BP 132/76
[2021-04-05 19:42] VITALS: BP 134/84
--- NOTE | 2021-04-05 19:57 | NUR ---
Assumed pt care this am, Vs stable alert adn oriented x 4. Contient, has a complete bath this pm. Pt is able t walk from the bed to the toilet, gait is steady. POC followed with no signs or verbalizations of distress noted. Endorsed to the night nurse.
[2021-04-06 00:05] LABS: GLYCOHEMOGLOBIN (HGB A1C) 5.7 % (4.8-5.6)
--- NOTE | 2021-04-06 05:34 | NUR ---
Pt. rested quietly during the night when checked on during frequent rounds. Po pain medication given for c/o bilateral feet pain (see emar) with some relief of pain. No other complaints offered.
[2021-04-06 05:53] LABS: CALCIUM 9.3 mg/dL (8.5-10.1); CREATININE 1.8 mg/dL (0.6-1.0); MAGNESIUM 1.6 mg/dL (1.8-2.4); POTASSIUM 3.3 mmol/L (3.5-5.1)
[2021-04-06 16:32] VITALS: BP 142/95
[2021-04-06 19:10] VITALS: BP 146/97
--- NOTE | 2021-04-06 19:38 | NUR ---
I agree with Cammie LPNs Assessment.
--- NOTE | 2021-04-06 20:15 | NUR ---
ASSUMED CARE OF PATIENT AT SHIFT CHNAGE. ASSESMENT CHARTED. MEDS ADMINISTERED PER EMAR. VSS. PATIENT IS A&OX4 AND MAKES NEEDS KNOWN. RT O2 SAT MONITORING INITIATED THIS SHIFT; ON O2 NOW AT 1L NC. UP SBA BUT INSISTS SHE IS UP AD JUAN C. KCL INFUSING ON L AC VOICED STINGING BUT NO ISSUES BESIDES POSITIONAL PRESSURE. NO FURTHER ISSUES NOTED; NEW ORDER FOR NICOTINE PATCH ON EMAR. ENDORSED TO NOC RN
--- NOTE | 2021-04-07 06:38 | NUR ---
PT OBSERVED LYING IN BED WATCHING TV AT SHIFT CHANGE.PT WAS ABLE TO AMBULATE TO THE TOILET WITH STEADY GAIT.IV ACCESS INFILTRATED NEW ONE PUT IN.PT WITH MILD SLURRING SPEECH.NON PRODUCTIVE COUGH NOTED.PT ALERT,NO CONFUSION NOTED.PT WITH L SIDED WEAKNESS FROM A PREVIOUS STROKE. PT ABLE TO MAKE HER NEEDS KNOWN. CALL LIGHT WITHIN REACH.
[2021-04-07 08:05] VITALS: BP 153/102
--- NOTE | 2021-04-07 14:23 | NUR ---
Assumed pt care this am, vs stable. SOB noted informed MD. Covid test done, negative results, pending chect x-ray, abg. POC followed. Diet and medicatiosn are well toloerated.
--- NOTE | 2021-04-07 14:30 | NUR ---
PT ADMITTED RELATED TO MICHAEL AND WEAKNESS. CM REVEIWED CHART AND SPOKE WITH CARE TEAM. CM MET WITH PT AT BEDSIDE THIS DAY. PT APPEARED TO BE A&O X4. CM ROLE INTRODUCED. PT INDICATED SHE RESIDES IN A HOUSE WITH HER MOTHER AND SISTER. PT INDICATED THERE ARE 3 STEPS TO ENTER BUT THEY HAVE A RAMP. 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 PT INDICATED NO O2 AT HOME. PT INDICATED SHE PLANS TO RETURN HOME OCNE MEDICALLY STABLE. PT HAD EXERCISE OX DONE AND PT DIDN'T QUALIFY FOR HOME O2 UPON [place]. PT IS RECEPTIVE TO HH SERVICES UPON [place]. PT INDICTED NO PREFERENCE FOR PROVIDER. REFERRAL SENT TO [facility] AND THEY INDICATED THEY CAN LIKELY ACCEPT. ANTICIPATE DC HOME THIS DAY.
--- NOTE | 2021-04-07 14:43 | 2DMMODE ---
[facility] Louise [place] [address] 2 D/M-MODE ECHOCARDIOGRAM Name: CESAR FLANNERY Room #: 453-P ADM IN M.R.#: [id number] Admission: 04/04/21 Attend Phys: Ulises Garcia MD Discharge: Date of : 56 Report #: [id number] THIS REPORT FOR: cc: Yvrose Lara DNP, Mary E. DNP Mancuso, Gerald M. MD [facility] ~ APPROVED REPORT Study performed: 04/07/2021 09:11:15 EXAM: Comprehensive 2D, Doppler, and color-flow Echocardiogram Patient Location: Bedside Room #: [facility] Status: routine BSA: 1.70 HR: 68 bpm BP: 153/102 mmHg Rhythm: NSR Other Information Study Quality: Good Indications CVA/TIA Pacemaker Hypertension/HDD Echo Enhancing Agent Indication: Rule out Shunt Agent(s) / Amount(s) Used: Agitated Saline 7 cc 2D Dimensions IVSd: 10.26 (7-11mm) LVDd: 40.27 mm PWd: 10.18 (7-11mm) Ascending Ao: 30.08 (22-36mm) LVDs: 29.79 (25-40mm) Left Atrium: 23.70 (27-40mm) Aortic Root: 28.68 mm IVC: 23.00 mm Aortic Valve AoV Peak Adi.: 1.48 m/s AO Peak Gr.: 8.77 mmHg LVOT Max P.95 mmHg LVOT Max V: 0.86 m/s [facility] [address] [place] [address] 2 D/M-MODE ECHOCARDIOGRAM Name: PETRASILVIANOCESARTEMO CRAMER Room #: 453 ADM IN M.R.#: [id number] Admission: 04/04/21 Attend Phys: Ulises Garcia MD Discharge: Date of : 56 Report #: [id number] Mitral Valve E/A Ratio: 0.9 MV Decel. Time: 204.54 ms MV E Max Adi.: 0.83 m/s MV A Adi.: 0.88 m/s MV PHT: 59.32 ms IVRT: 143.02 ms Pulmonary Valve PV Peak Adi.: 1.01 m/s PV Peak Gr.: 4.10 mmHg Tricuspid Valve TR Peak Adi.: 3.44 m/s TR Peak Gr.: 47.30 mmHg PA Pressure: 57.00 mmHg Left Ventricle The left ventricle is normal size. There is normal LV segmental wall motion. There is normal left ventricular wall thickness. The left ventricular systolic function is normal. The left ventricular ejection fraction is within the normal range. LVEF is 55-60%. Grade I - abnormal relaxation pattern. Right Ventricle The right ventricle is normal size. The right ventricular systolic function is normal. Pacemaker lead is present in the right ventricle. Atria The left atrium size is normal. Interatrial septum is intact without evidence of ASD or PFO. The right atrium size is normal. Pacemaker lead is present in the right atrium. Aortic Valve The aortic valve is normal in structure. No aortic regurgitation is present. There is no aortic valvular stenosis. Mitral Valve The mitral valve is normal in structure. There is no mitral valve regurgitation noted. No evidence of mitral valve stenosis. Tricuspid Valve The tricuspid valve is normal in structure. There is trace tricuspid regurgitation. Estimated PAP 57 mmHg. There is mild pulmonary hypertension. Pulmonic Valve [facility] [place] [address] 2 D/M-MODE ECHOCARDIOGRAM Name: PRUDENCIOCESARTEMO CRAMER Room #: 453-P [facility] IN M.R.#: [id number] Admission: 04/04/21 Attend Phys: Ulises Garcia MD Discharge: Date of : 56 Report #: [id number] The pulmonary valve is normal in structure. There is no pulmonic valvular regurgitation. Great Vessels The aortic root is normal in size. IVC is dilated and collapses >50% with inspiration. Pericardium There is no pericardial effusion. <Conclusion> The left ventricle is normal size. LVEF is 55-60%. Grade I - abnormal relaxation pattern. The right ventricle is normal size. Pacemaker lead is present in the right ventricle. The left atrium size is normal. The aortic valve is normal in structure. There is no mitral valve regurgitation noted. There is trace tricuspid regurgitation. Estimated PAP 57 mmHg. There is mild pulmonary hypertension. The aortic root is normal in size. There is no pericardial effusion. <ELECTRONICALLY SIGNED> By: Zaki Ramirez MD, FACC 04/07/21 1443 [id number] Zaki Ramirez MD, FACC /INF
[2021-04-07 14:58] LABS: BE(vivo) 2.9 mmol/L (-2 to +3); HCO3 27.8 mmol/L (22.0-26.0); PCO2 43.8 mmHg (35.0-45.0); PO2 80.9 mmHg (80.0-100.0); pH 7.421 (7.360-7.450); sO2 96.1 % (92.0-98.0)
[2021-04-07 15:10] VITALS: BP 153/102
[2021-04-07] MEDS ORDERED: ALLOPURINOL 30300 M1 PO (16:28)
[2021-04-07] MEDS ORDERED: CEFUROXIME500 MG PO (16:28)
[2021-04-07] MEDS ORDERED: ZITHROMAX500 MG PO (16:28)
[2021-04-07] MEDS ORDERED: CARDIZEM CD 18180 M3 PO (16:28)
[2021-04-07] MEDS ORDERED: Nicotine Transdermal TRANSDERM (16:28)
[2021-04-07] MEDS ORDERED: PROAIR HFA8.5 GM INH (16:28)
== END 2021-04-07 19:36 | disposition home health service (06) | DRG 682 ==
LOC: ER 10:20 → EROBS 12:36 → 4W 19:58
PROVIDERS: Emergency Medicine; Psychiatry & Neurology Neurology; ADMIT Internal Medicine; ATTEND Internal Medicine
DX: N17.0 Acute kidney failure with tubular necrosis (principal); G92 Toxic encephalopathy; I69.354 Hemiplegia and hemiparesis following cerebral infarction affecting left non-dominant side; N39.0 Urinary tract infection, site not specified; J44.1 Chronic obstructive pulmonary disease with (acute) exacerbation; E78.5 Hyperlipidemia, unspecified; D64.9 Anemia, unspecified; M10.9 Gout, unspecified; I12.9 Hypertensive chronic kidney disease with stage 1 through stage 4 chronic kidney disease, or unspecified chronic kidney disease; N18.9 Chronic kidney disease, unspecified; F32.9 Major depressive disorder, single episode, unspecified; F17.210 Nicotine dependence, cigarettes, uncomplicated; Z20.822 Contact with and (suspected) exposure to COVID-19; I25.2 Old myocardial infarction; Z79.899 Other long term (current) drug therapy; Z79.82 Long term (current) use of aspirin; Z91.041 Radiographic dye allergy status
CPT/HCPCS: 10045

== ENCOUNTER → 2021-05-22 | Outpatient (CLI) | payer OTHER ==
[~2021-05-22] MED LIST changes: +ALLOPURINOL 30300 M1 PO; +CARDIZEM CD 18180 M3 PO; +Nicotine Transdermal TRANSDERM; +PROAIR HFA8.5 GM INH; +ZITHROMAX500 MG PO
== END ==
LOC: SJCVCIMAG 10:12
PROVIDERS: ATTEND Internal Medicine Cardiovascular Disease
DX: I46.9 Cardiac arrest, cause unspecified (principal); I25.10 Atherosclerotic heart disease of native coronary artery without angina pectoris; I25.84 Coronary atherosclerosis due to calcified coronary lesion; I47.2 Ventricular tachycardia; I10 Essential (primary) hypertension; E78.5 Hyperlipidemia, unspecified; F32.9 Major depressive disorder, single episode, unspecified; F17.200 Nicotine dependence, unspecified, uncomplicated; Z95.810 Presence of automatic (implantable) cardiac defibrillator; Z79.82 Long term (current) use of aspirin; Z79.899 Other long term (current) drug therapy; Z88.8 Allergy status to other drugs, medicaments and biological substances